=== PATIENT | female | born 1985 | race Caucasian/White ===

== ENCOUNTER 2023-04-17 11:01 | Emergency (ER) | payer OTHER, SELFPAY ==
[2023-04-17 11:10] VITALS: BP 135/84; PULSE 84; RESP 16; TEMP 36.6; O2SAT 98; BMI 19.3
[2023-04-17 11:43] LABS: Add Urine Microscopic? NO; Charge for UA Resulting for Rev
[2023-04-17 11:44] LABS: Bilirubin Urine Neg (Negative); Blood Urine Neg (Negative); Glucose Urine UA Norm (Normal); Ketones Urine 3+ (Negative); Leukocyte Esterase Urine Negative (Negative); Nitrate Urine Negative (Negative); Protein Urine Neg (Negative); Specific Gravity, Urine 1.015 (1.005-1.030); Urine Appearance Clear (CLEAR); Urine Color Yellow (Yellow); Urobilinogen Urine Norm (Negative); pH Urine 5 (5-7)
--- NOTE | 2023-04-17 11:45 | W.ED.ABDPA2 ---
HPI - Abdominal Pain General: Chief Complaint: Abdominal Pain Stated Complaint: LRQ pain Time Seen by Provider: 04/17/23 11:24 History of Present Illness: Patient presents to the ER with complaints of right lower quadrant pain. Patient started having this pain last night. Patient says it is worse when she walks or sits up straight. Patient did have some vomiting last night. Patient is currently 16 weeks . Patient still has her appendix. MD elicited complaint: abdominal pain Onset (ago): day(s) (Started last night) Pain Consistency: constant Location: RLQ Severity: moderate Quality: aching Radiation: suprapubic Migration to: no migration Exacerbating factors: movement Relieving factors: nothing Associated Symptoms: Reports nausea and vomiting; Denies chills and fever(s) Review of Systems General: Reports: 10 or more systems reviewed and unremarkable except in HPI and below Const: Denies: fever(s) or chills Eyes: Denies: change in vision or photophobia ENMT: Denies: throat pain or odynophagia Card: Denies: chest pain, palpitations or irregular heart rhythm Resp: Denies: dyspnea, productive cough or non-productive cough GI: Reports: abdominal pain, nausea and vomiting : Denies: flank pain or difficulty voiding Musc: Denies: neck pain or back pain Skin/Breast: Denies: rash or pruritus Physical Exam Const: COMMON NORMALS: no acute distress, average body habitus, patient oriented x3, no limitations, healthy appearing, alert and well nourished HENMT: COMMON NORMALS: normocephalic, atraumatic, hearing grossly normal bilaterally, external ears normal, Normal external nose present and moist oral mucous membranes HEAD & SCALP: normocephalic and atraumatic NOSE: Normal external nose present EXTERNAL EAR: Yes external ears normal Eye: COMMON NORMALS: Equal, round and reactive pupils present, EOMs intact bilaterally, conjunctivae normal and no scleral icterus CONJUNCTIVA: Yes conjunctivae normal PUPIL: Yes Equal, round and reactive pupils present Neck/C-Spine: COMMON NORMALS: full ROM, no lymphadenopathy, supple, no meningeal signs, no JVD and Thyroid normal THYROID: Thyroid normal Lymph: LYMPHATIC: no lymphadenopathy noted Chest: COMMONS NORMALS: normal inspection of the chest and normal palpation of entire chest wall Resp: COMMON NORMALS: normal respiratory effort, No retractions, No use of accessory muscles and clear to auscultation bilaterally AUSCULTATION: clear to auscultation bilaterally Cardio: COMMON NORMALS: no JVD, regular rate, regular rhythm, S1 normal heart sound present, S2 normal heart sound present, No gallops present (Cardio), No clicks present (Cardio), No murmurs present (Cardio) and No rub (Cardio) RATE: regular rate RHYTHM: regular rhythm HEART SOUNDS: S1 normal heart sound present and S2 normal heart sound present GI: COMMON NORMALS: Soft to palpation and No hepatosplenomegaly present INSPECTION: Yes normal to inspection (Gravid) AUSCULTATION: Yes normoactive bowel sounds PALPATION: Yes Soft to palpation, Yes Tenderness to palpation present (GI) Details: RLQ, Yes No hepatosplenomegaly present, No Pulsatile mass present and No Rebound tenderness present : COMMON NORMALS: Yes no CVA tenderness BLADDER/KIDNEY EXAM: Yes no CVA tenderness Back/Pelvis: COMMON NORMALS: no CVA tenderness Neuro: COMMON NORMALS: patient oriented x3 SENSORIUM/ORIENTATION: Yes alert MENINGEAL SIGNS: Yes no meningeal signs Course Vital Signs: Vital signs: Vital Signs Temperature 97.9 F 04/17/23 11:10 Pulse Rate 97 04/17/23 12:44 Respiratory Rate 16 04/17/23 12:44 Blood Pressure 123/85 04/17/23 12:44 Pulse Oximetry 100 04/17/23 12:44 Oxygen Delivery Me thod Room Air 04/17/23 12:44 MDM - Abdominal Pain Medical Decision Making Patient presents to the ER with right lower quadrant pain. Patient is 16 weeks . Lab work was obtained which showed a very mildly elevated white count of 12.7 which could be physiological , urine did show elevated ketones again probably from dehydration in . Otherwise lab work was benign. Ultrasound was obtained which was nondiagnostic for appendicitis as appendix was not clearly visualized. Dr. Saxena was consulted he agrees this is probably not appendicitis at this time or very early stage of appendicitis. He would not take the patient to the operating room based upon these alone. This may be round ligament pain due to also. Patient be discharged home with follow-up instructions to carefully watch for pain, fever, nausea vomiting, worsening of her symptoms over the next 24 hours and if she has these she should return to the ER immediately. Family was comfortable with this decision. Differential Diagnosis Likely abdominal pain and acute appendicitis; Unlikely calculus of kidney, constipation, diverticulitis, endometriosis, gastroenteritis, pancreatitis or small bowel obstruction Medical Records I reviewed the patient's medical records. Lab Data I reviewed the patient's lab results. 04/17/23 11:55 04/17/23 11:55 Labs/Radiology: Radiology Impressions Abdomen Ultrasound 04/17/23 12:11 IMPRESSION: 1. The appendix is not clearly visible. Appendicitis is not excluded. 2. Small volume free fluid in the right lower quadrant. Nonspecific finding of uncertain significance. This could represent an intra-abdominal inflammatory process, or may be physiologic. 3. 6 mm echogenic focus with posterior acoustic shadowing in the right lower quadrant. Nonspecific finding of uncertain significance. This could be a phlebolith, vascular calcification, shadowing bowel contents, or appendicolith. Laboratory Results WBC 12.7 10^3/uL (4.0-10.0) H 04/17/23 11:55 RBC 4.18 10^6/uL (4.1-5.3) 04/17/23 11:55 Hgb 11.8 g/dL (11.5-15.3) 04/17/23 11:55 Hct 36.5 % (37.0-47.0) L 04/17/23 11:55 MCV 87.3 fl (81-99) 04/17/23 11:55 MCH 28.2 pg (28.0-34.0) 04/17/23 11:55 MCHC 32.3 g/dL (30.0-36.0) 04/17/23 11:55 RDW 13.2 % (12.1-15.1) 04/17/23 11:55 Plt Count 158 10^3/cmm (130-400) 04/17/23 11:55 MPV 9.6 fL (7.4-10.4) 04/17/23 11:55 Neut % (Auto) 85.3 % 04/17/23 11:55 Lymph % (Auto) 9.3 % 04/17/23 11:55 [place] % (Auto) 4.7 % 04/17/23 11:55 Eos % (Auto) 0.1 % 04/17/23 11:55 Baso % (Auto) 0.2 % 04/17/23 11:55 Neut # (Auto) 10.87 10^3/uL (1.8-7.7) H 04/17/23 11:55 Lymph # (Auto) 1.2 10^3/uL (0.8-4.8) 04/17/23 11:55 [place] # (Auto) 0.6 10^3/uL (0.2-0.9) 04/17/23 11:55 Eos # (Auto) 0.0 10^3/uL (0.0-0.8) 04/17/23 11:55 Baso # (Auto) 0.0 10^3/uL (0.0-0.1) 04/17/23 11:55 Nucleated RBC % (auto) 0 % 04/17/23 11:55 Nucleated RBCs # 0.0 /100WBC 04/17/23 11:55 Sodium 134 mmol/L (136-145) L 04/17/23 11:55 Potassium 3.6 mmol/L (3.5-5.1) 04/17/23 11:55 Chloride 101 mmol/L (98-107) 04/17/23 11:55 Carbon Dioxide 20 mmol/L (22-29) L 04/17/23 11:55 Anion Gap 16.6 (5-19) 04/17/23 11:55 BUN 6 mg/dL (6-20) 04/17/23 11:55 Creatinine 0.4 mg/dL (0.5-0.9) L 04/17/23 11:55 GFR Calculation 178.6 mL/min (90-130) H 04/17/23 11:55 Glucose 84 mg/dL (65-115) 04/17/23 11:55 Calculated Osmolality 275 mOsm/kg (285-295) L 04/17/23 11:55 Calcium 8.9 mg/dL (8.5-10.5) 04/17/23 11:55 Total Bilirubin 0.5 mg/dL (0.15-1.2) 04/17/23 11:55 AST 17 U/L (0-32) 04/17/23 11:55 ALT 19 U/L (0-33) 04/17/23 11:55 Alkaline Phosphatase 42 U/L (35-105) 04/17/23 11:55 Total Protein 7.1 g/dL (6.6-8.7) 04/17/23 11:55 Albumin 3.8 g/dL (3.5-5.2) 04/17/23 11:55 Globulin 3.3 g/dL (1.3-4.6) 04/17/23 11:55 Urine Color Yellow (Yellow) 04/17/23 11:34 Urine Appearance Clear (CLEAR) 04/17/23 11:34 Urine pH 5 (5-7) 04/17/23 11:34 Ur Specific [place] 1.015 (1.005-1.030) 04/17/23 11:34 Urine Protein Neg (Negative) 04/17/23 11:34 Urine Glucose (UA) Norm (Normal) 04/17/23 11:34 Urine Ketones 3+ (Negative) H 04/17/23 11:34 Urine Blood Neg (Negative) 04/17/23 11:34 Urine Nitrate Negative (Negative) 04/17/23 11:34 Urine Bilirubin Neg (Negative) 04/17/23 11:34 Urine Urobilinogen Norm mg/dL (Negative) 04/17/23 11:34 Ur Leukocyte Esterase Negative (Negative) 04/17/23 11:34 Discharge Plan Discharge Patient Disposition: Home Clinical Impression: Right lower quadrant pain Qualifiers: Weeks of gestation: 16 weeks Qualified Code(s): Z3A.16 - 16 weeks gestation of Condition: Stable Prescriptions: No Action No Known Home Medications Discharge Orders: Discharge ED (Routine); Ordered 04/17/23 Ordered By: Jeancarlos Moody Referrals: Tejal Mcelroy MD [Primary Care Provider] - 1 week Patient Instructions: Abdominal Pain (ED) Activity Restrictions/Additional Instructions: Please watch for increased pain in your right lower quadrant, fever, worsening nausea vomiting, as these may be signs of worsening symptomatology. If any of these happen please come back to the ER immediately as your condition may have changed. Please push plenty of fluids Coding Level of Care Code ED [employer] for Juani Daugherty
[2023-04-17 12:06] LABS: Basophils % 0.2 %; Eosinophils % 0.1 %; Hematocrit 36.5 % (37.0-47.0); Hemoglobin 11.8 g/dL (11.5-15.3); Lymphocytes # 1.2 10^3/uL (0.8-4.8); Lymphocytes % 9.3 %; Mean Corpuscular HGB Conc 32.3 g/dL (30.0-36.0); Mean Corpuscular Hemoglobin 28.2 pg (28.0-34.0); Mean Corpuscular Volume 87.3 fl (81-99); Mean Platelet Volume 9.6 fL (7.4-10.4); Monocytes # 0.6 10^3/uL (0.2-0.9); Monocytes % 4.7 %; Neutrophils # 10.87 10^3/uL (1.8-7.7); Neutrophils % 85.3 %; Nucleated Red Blood Cells % 0 %; Platelet Count 158 10^3/cmm (130-400); Red Blood Count 4.18 10^6/uL (4.1-5.3); Red Cell Distribution Width 13.2 % (12.1-15.1); White Blood Count 12.7 10^3/uL (4.0-10.0)
--- NOTE | 2023-04-17 12:11 | USR_ITS ---
PROCEDURE INFORMATION: Exam: US Abdomen, Limited; Appendix Exam date and time: 04/17/2023 12:25 PM Age: 38 years old Clinical indication: Abdominal pain; Acute; ; Additional info: Rlq pain, 16 weeks , focus on rlq, appendix, ovary TECHNIQUE: Imaging protocol: Real time ultrasound of the abdomen with image documentation. Limited exam focused on the appendix. COMPARISON: US OB >= 14 weeks fetus [id number] 04/18/2018 3:00 PM FINDINGS: Appendix: The appendix is not clearly visible. Intraperitoneal space: There is a small volume of free fluid in the right lower quadrant. There is a 6 mm echogenic focus with posterior acoustic shadowing adjacent to the free fluid. US/US abdomen limited [id number] IMPRESSION: 1. The appendix is not clearly visible. Appendicitis is not excluded. 2. Small volume free fluid in the right lower quadrant. Nonspecific finding of uncertain significance. This could represent an intra-abdominal inflammatory process, or may be physiologic. 3. 6 mm echogenic focus with posterior acoustic shadowing in the right lower quadrant. Nonspecific finding of uncertain significance. This could be a phlebolith, vascular calcification, shadowing bowel contents, or appendicolith.
[2023-04-17 12:28] LABS: Alanine Aminotransferase 19 U/L (0-33); Albumin Level 3.8 g/dL (3.5-5.2); Alkaline Phosphatase 42 U/L (35-105); Anion Gap 16.6 (5-19); Aspartate Amino Transferase 17 U/L (0-32); Blood Urea Nitrogen 6 mg/dL (6-20); Calcium 8.9 mg/dL (8.5-10.5); Carbon Dioxide 20 mmol/L (22-29); Chloride 101 mmol/L (98-107); Globulin 3.3 g/dL (1.3-4.6); Glomerular Filtration Rate 178.6 mL/min (90-130); Glucose 84 mg/dL (65-115); Osmolality Calculated 275 mOsm/kg (285-295); Potassium 3.6 mmol/L (3.5-5.1); Sodium 134 mmol/L (136-145); Total Bilirubin 0.5 mg/dL (0.15-1.2); Total Protein 7.1 g/dL (6.6-8.7)
[2023-04-17 12:44] VITALS: BP 123/85; PULSE 97; RESP 16; O2SAT 100
== END 2023-04-17 13:29 | disposition home or self-care (01) ==
PROVIDERS: Emergency Provider Emergency Medicine; PCP Family Medicine
DX: O26.892 Other specified pregnancy related conditions, second trimester (principal); R10.31 Right lower quadrant pain; Z3A.16 16 weeks gestation of pregnancy
CPT/HCPCS: 76705; 80053; 81000; 81003; 85025; 99283

== ENCOUNTER 2023-09-13 17:01 | Outpatient (CLI) | payer OTHER, MEDICAID, SELFPAY ==
[2023-09-13 17:25] VITALS: BMI 20.9
[2023-09-13 17:27] VITALS: BP 153/87; PULSE 90
[2023-09-13 17:47] VITALS: BP 134/91; PULSE 109
[2023-09-13 17:52] LABS: Basophils % 0.2 %; Eosinophils % 0.3 %; Hematocrit 37.6 % (36-47); Lymphocytes # 1.9 10^3/uL (0.8-4.8); Lymphocytes % 19.4 %; Mean Corpuscular HGB Conc 32.7 g/dL (30-55); Mean Corpuscular Hemoglobin 29.5 pg (27-33); Mean Corpuscular Volume 90.2 fl (85-98); Mean Platelet Volume 9.8 fL (7.4-10.4); Monocytes # 0.6 10^3/uL (0.2-0.9); Monocytes % 6.3 %; Neutrophils # 7.03 10^3/uL (1.8-7.7); Neutrophils % 73.2 %; Nucleated Red Blood Cells % 0 %; Platelet Count 174 10^3/cmm (157-399); Red Blood Count 4.17 10^6/uL (3.85-5.65)
[2023-09-13 18:07] VITALS: BP 133/90; PULSE 88
[2023-09-13 18:19] LABS: Alanine Aminotransferase 72 U/L (0-33); Albumin Level 3.7 g/dL (3.5-5.2); Alkaline Phosphatase 98 U/L (35-105); Anion Gap 16.9 (5-19); Aspartate Amino Transferase 46 U/L (0-32); Blood Urea Nitrogen 21 mg/dL (6-20); Carbon Dioxide 22 mmol/L (22-29); Chloride 101 mmol/L (98-107); Creatinine Clr Calc Pharmacy 152.6363; Globulin 3.5 g/dL (1.3-4.6); Glomerular Filtration Rate 138.1 mL/min (90-130); Glucose 74 mg/dL (65-115); Osmolality Calculated 284 mOsm/kg (285-295); Potassium 3.9 mmol/L (3.5-5.1); Sodium 136 mmol/L (136-145); Total Bilirubin 0.3 mg/dL (0.15-1.2); Total Protein 7.2 g/dL (6.6-8.7); Uric Acid 5.8 mg/dL (2.4-5.7)
[2023-09-13 18:21] LABS: Urine Creatinine 49 mg/dL (28-217); Urine Protein Random 5 mg/dL
[2023-09-13 18:27] VITALS: BP 134/89; PULSE 95
[2023-09-13 18:47] VITALS: BP 136/81; PULSE 87
[2023-09-13 19:19] VITALS: BP 136/81; PULSE 87; RESP 18
== END 2023-09-13 19:00 | disposition home or self-care (01) ==
LOC: OPOB 17:06 → OBGYN 17:06
PROVIDERS: PCP Family Medicine; Visit Provider Family Medicine
DX: O16.9 Unspecified maternal hypertension, unspecified trimester (principal); Z3A.00 Weeks of gestation of pregnancy not specified
CPT/HCPCS: 36415; 59025; 80053; 82570; 84156; 84550; 85025; 99211

== ENCOUNTER 2023-09-16 16:45 | Outpatient (CLI) | payer OTHER, MEDICAID, SELFPAY ==
[2023-09-16 16:50] VITALS: BMI 20.3
[2023-09-16 17:00] VITALS: BP 143/89; PULSE 95
[2023-09-16 17:20] VITALS: BP 142/89; PULSE 88
[2023-09-16 17:41] VITALS: BP 142/89; PULSE 88
== END 2023-09-16 17:35 | disposition home or self-care (01) ==
LOC: OPOB 16:47 → OBGYN 16:48
PROVIDERS: PCP Family Medicine; Visit Provider Family Medicine
DX: O24.419 Gestational diabetes mellitus in pregnancy, unspecified control (principal); Z3A.00 Weeks of gestation of pregnancy not specified
CPT/HCPCS: 59025; 99211

== ENCOUNTER 2023-09-19 10:33 | Outpatient (CLI) | payer OTHER, MEDICAID, SELFPAY ==
[2023-09-19 10:42] VITALS: BMI 20.7
[2023-09-19 10:55] VITALS: BP 129/86; PULSE 88
[2023-09-19 11:09] VITALS: BP 133/85; PULSE 93
[2023-09-19 11:24] VITALS: BP 136/84; PULSE 94
[2023-09-19 11:32] VITALS: BP 136/84
== END 2023-09-19 11:35 | disposition home or self-care (01) ==
LOC: OPOB 10:35 → OBGYN 10:36
PROVIDERS: PCP Family Medicine; Visit Provider Family Medicine
DX: O26.899 Other specified pregnancy related conditions, unspecified trimester (principal); Z3A.00 Weeks of gestation of pregnancy not specified
CPT/HCPCS: 59025

== ENCOUNTER 2023-09-22 00:45 | Outpatient (CLI) | payer OTHER, MEDICAID, SELFPAY ==
[2023-09-22] VITALS (9 sets, daily range): BP systolic 119–148; BP diastolic 73–96; PULSE 78–111; RESP 17; TEMP 35.9; BMI 20.8
== END 2023-09-22 03:16 | disposition home or self-care (01) ==
LOC: OPOB 00:46 → OBGYN 00:47
PROVIDERS: PCP Family Medicine; Visit Provider Family Medicine
DX: O26.899 Other specified pregnancy related conditions, unspecified trimester (principal); Z3A.00 Weeks of gestation of pregnancy not specified; R10.9 Unspecified abdominal pain
CPT/HCPCS: 59025; 99211

== ENCOUNTER 2023-09-23 02:44 | Inpatient (IN) | payer OTHER, MEDICAID, SELFPAY ==
[2023-09-23] VITALS (62 sets, daily range): BP systolic 126–185; BP diastolic 70–102; PULSE 76–120; RESP 18; TEMP 36.3–37.2; O2SAT 94–100; BMI 20.7
[2023-09-23] MEDS: lactated ringers 1,000 ML 999 ML IV (02:41)
[2023-09-23 02:47] LABS: Basophils % 0.2 %; Eosinophils % 0.1 %; Lymphocytes % 10.5 %; Mean Corpuscular HGB Conc 33.5 g/dL (30-55); Mean Corpuscular Hemoglobin 29.5 pg (27-33); Mean Corpuscular Volume 87.9 fl (85-98); Mean Platelet Volume 10.2 fL (7.4-10.4); Monocytes # 0.9 10^3/uL (0.2-0.9); Monocytes % 4.8 %; Neutrophils # 15.94 10^3/uL (1.8-7.7); Neutrophils % 83.7 %; Nucleated Red Blood Cells % 0 %; Platelet Count 199 10^3/cmm (157-399); Red Blood Count 4.55 10^6/uL (3.85-5.65); Red Cell Distribution Width 13.2 % (12.1-15.1); White Blood Count 19.03 10^3/uL (3.29-11.43)
--- NOTE | 2023-09-23 03:41 | ANES.PREANE2 ---
Pre-Anesthetic Assessment Height/Weight: Height 1.73 m Weight 61.689 kg Temp Pulse BP O2 Del Method 97.3 F L 86 154/91 Room Air 09/23/23 02:24 09/23/23 03:35 09/23/23 03:35 09/23/23 02:34 Preop Diagnosis: labor epidural Familial anesthetic complications: none Was Beta Rosalia taken within 24 hours: N/A Was Clonidine taken within 24 hours: N/A Social No alcohol and No tobacco Exam alert, oriented x 3, clear to auscultation bilaterally and regular rate & rhythm Airway Submandibular: within normal limits Cervical ROM: within normal limits Mallampati: Class I Dentition: full Pulmonary None reported CV/HEM Hypertension (with ) None reported Hepatic None reported GI Gastroesophageal Reflux Disease (food related) Metabolic None reported Musc/skel None reported Neuropsych None reported Anesthetic Plan ASA status: 2 Anesthesia: Regional (specify below) (Epidural) Risk of > 500 ml blood loss (7ml/kg in children): No Medications/Allergies Home Medications Medication Instructions Recorded Confirmed Last Taken Type 1 tab PO DAILY 09/23/23 09/23/23 09/22/23 18:00 History aspirin 81 mg capsule 1 mg PO DAILY 09/23/23 09/23/23 09/22/23 18:00 History magnesium 1 tab PO DAILY 09/23/23 09/23/23 09/22/23 18:00 History Allergies Allergy/AdvReac Type Severity Reaction Status Date / Time codeine Allergy Mild rash Verified 09/23/23 02:51 Current Medications Generic Name Dose Route Start Last Admin Trade Name Freq PRN Reason Stop Dose Admin Lactated Ringer's 1,000 mls @ 999 mls/hr 09/23/23 02:36 09/23/23 02:41 Lactated Ringers IV 999 mls/hr .Q1H1M PRN Administration epidural PFSH Anesthesia Female Reproductive History : 3 Data Anesthesia 09/23/23 02:40 Short CBC 09/23/23 Range/Units 02:40 WBC 19.03 H (3.29-11.43) 10^3/uL Hgb 13.40 (11.27-16.99) g/dL Hct 40.0 (36-47) % MCV 87.9 (85-98) fl Plt Count 199 (157-399) 10^3/cmm Neut % (Auto) 83.7 % Neut # (Auto) 15.94 H (1.8-7.7) 10^3/uL Cardiac Studies: No Data to Display
[2023-09-23] MEDS: ROPivacaine syringe 100 MG/50 ML SYRINGE 10 MG EPIDURAL (04:10)
--- NOTE | 2023-09-23 04:28 | ANES.PROC ---
Anesthesia Procedures Procedure/Date: 09/23/23 Epidural: Time Out Performed: Yes Consents Signed: Procedure Consent and NPO Consent Consent: requested by attending/covering physician, from patient, risks and benefits reviewed, patient agrees to proceed and emergency procedure Lumbar Level: L3-L4 Epidural position: sitting Epidural procedure: sterile prep of area (betadine), 1% lidocaine to numb the area (3ml), 18 g needle, neg for paresthesia, test dose given, 1.5% xylocaine 1:200k epi (3ml/2ml), 0.2% Ropivacaine bolus ml (5ml), placed PCEA, no systemic response, sterile dressing applied, L.U.D. no apparent complications and 0.2% Ropiavacaine @ mls/hr (10ml/hr)
--- NOTE | 2023-09-23 06:26 | PM.OPHPUD ---
Labor & Delivery H&P Update Date of Procedure: September 23, 2023 Date H&P Performed: 09/20/23 Admission Diagnosis: Active labor IUP at 38 weeks 4 days gestation Diet-controlled gestational diabetes mellitus Gestational hypertension Polyhydramnios Desired permanent surgical sterilization Preop diagnosis: labor Planned procedure: Operation Date: 09/24/23 08:10 Proposed Procedures p Post Bilateral Tubal Ligation(Bilateral) - Tejal Mcelroy MD
[2023-09-23] MEDS: oxytocin 30 UNIT/500 ML BAG 600 UNIT IV (06:32)
--- NOTE | 2023-09-23 06:33 | PM.DELIVERY ---
Delivery Note: Date of delivery: September 23, 2023 Procedure: Normal spontaneous vaginal delivery Estimated blood loss (mL): 300 Pre-Delivery Course: The patient had routine care at [facility]. The patient failed her 1 hour glucose tolerance test and refused to take the 3-hour glucose tolerance test so instead she checked her blood sugars 4 times daily. For this reason she was considered gestational diabetes mellitus diet-controlled. In the beginning of the third trimester her fundal height was increased and she was diagnosed with polyhydramnios via ultrasound. In the late third trimester she had some mildly elevated blood pressures and was diagnosed with gestational hypertension. She did not require antihypertensives. She was receiving twice weekly NSTs and was scheduled for induction later today. labs: Blood type A+, antibody negative, HIV nonreactive, hepatitis B nonreactive, hepatitis C nonreactive, GC chlamydia negative, UDS negative, RPR nonreactive, rubella immune, the patient failed her 1 hour glucose tolerance test and refused to take the 3-hour glucose tolerance test so instead she checked her blood sugars 4 times daily. GBS negative. Delivery: This is a 38-year-old G4, P0121 at 38 weeks 4 days gestation who presented to labor and delivery in active labor. She was admitted for expectant management and received an epidural for pain management. When she was complete and +2 artificial rupture membranes was performed with clear fluid. She had a normal spontaneous vaginal delivery of a viable male infant weight 7 pounds 15 ounces, 3595 g Apgars 8 and 9 over an intact perineum. The infant had a body cord that was reduced upon delivery. The infant was suctioned at delivery and placed on the mother's chest. The cord was clamped and cut. The placenta was delivered grossly intact and normal to inspection. There was a third degree vaginal laceration that was sutured using 3-0 vicryl. Second-degree vaginal laceration was sutured using 3-0 chromic. Mother and infant were doing well after delivery. Coding Level of Care Code Acute Code for Chg Fwd Diagnoses
[2023-09-23] MEDS: benzocaine-menthol 78 gm Canister 1 SPRAY TOPICAL (10:24)
[2023-09-23] MEDS: ibuprofen 800 mg tablet PO ×3 (10:25→21:39)
[2023-09-23] MEDS: docusate sodium 100 mg Capsule PO (10:25)
[2023-09-23] MEDS: prenatal vitamin Capsule 1 CAP PO (10:25)
[2023-09-23 18:27] LABS: Hematocrit 30.6 % (36-47); Mean Corpuscular HGB Conc 32.7 g/dL (30-55); Mean Corpuscular Volume 88.7 fl (85-98); Mean Platelet Volume 10.2 fL (7.4-10.4); Platelet Count 156 10^3/cmm (157-399); Red Blood Count 3.45 10^6/uL (3.85-5.65); Red Cell Distribution Width 13.4 % (12.1-15.1); White Blood Count 18.29 10^3/uL (3.29-11.43)
[2023-09-24] VITALS (11 sets, daily range): BP systolic 111–142; BP diastolic 70–83; PULSE 85–110; RESP 16–18; TEMP 36.6–37.2; O2SAT 96–100
--- NOTE | 2023-09-24 07:30 | P.ANESUD_ITS ---
Pre-Anesthetic Update Pre-Anesthetic Assessment: Date of Surgery/Procedure: 09/24/23 Preop Maryana gnosis: desires sterilization Proposed Procedure: Operation Date: 09/24/23 08:10 Proposed Procedures p Post Bilateral Tubal Ligation(Bilateral) - Tejal Mcelroy MD Any changes to Pre-Anesthetic Assessment?: No Changes from Pre-Anesthetic Assessment: none Last Intake: Intake Last Liquid Date 09/23/23 Last Liquid Time 23:30 Last Solid Date 09/23/23 Last Solid Time 20:00 Labs Last 48hrs: Short CBC 09/23/23 09/23/23 Range/Units 02:40 18:10 WBC 19.03 H 18.29 H (3.29-11.43) 10^ 3/uL Hgb 13.40 10.00 L (11.27-16.99) g/ dL Hct 40.0 30.6 L (36-47) % MCV 87.9 88.7 (85-98) fl Plt Count 199 156 L (157-399) 10^3/c mm Neut % (Auto) 83.7 % Neut # (Auto) 15.94 H (1.8-7.7) 10^3/u L Blood Bank 09/23/23 02:40 Blood Type A Positive Rho(D) Type Positive Antibody Screen Negative Vitals: Temperature 98.3 F 09/24/23 04:00 Temperature Source Oral 09/24/23 04:00 Pulse Rate 93 09/24/23 04:00 Pulse Rhythm Regular 09/23/23 01:55 Pulse Strength 3+ Normal 09/23/23 01:55 Respiratory Rate 18 09/24/23 04:00 Respiratory Effort Spontaneous, Non- Labored 09/23/23 01:55 Respiratory Depth Normal 09/23/23 01:55 Respiratory Patter n Normal 09/23/23 01:55 Blood Pressure 126/82 09/24/23 04:00 Blood Pressure Kristen n 96 09/24/23 04:00 Blood Pressure Pos ition Semi Fowlers 09/24/23 04:00 Pulse Oximetry 96 09/23/23 15:50 Oxygen Delivery Me thod Room Air 09/23/23 15:50 Exam: Pre-Anes Outpt Exam: alert and oriented x 3 Cardiac Studies: No Data to Display
[2023-09-24] MEDS: famotidine 20 mg/2 mL INJ IVP (07:53)
[2023-09-24] MEDS: metoclopramide 5 mg/mL SDV 2 mL 10 MG IVP (07:53)
[2023-09-24] MEDS: citric acid-sodium citrate 30 mL UDC PO (07:53)
[2023-09-24] MEDS: ceFAZolin 2,000 MG in sodium chloride 0.9% (plus) 50 ML 100 MG IV (07:54)
--- NOTE | 2023-09-24 09:05 | PM.OP ---
Operative Report Date of procedure: September 24, 2023 Pre-op diagnosis: Desired permanent surgical sterilization Procedure done: bilateral tubal ligation Pathology: Segments of right and left fallopian tubes Surgeon: Tejal Mcelroy MD Estimated blood loss (mL): 2 IV fluids (mL): 200 Complications: None Procedure: After informed consent the patient was taken to the OR where spinal anesthesia was administered. She was prepped and draped in normal sterile fashion in dorsal supine position. After adequate spinal anesthesia was verified, and infraumbilical skin incision was made using a 15 blade. The incision was then carried through to the underlying layer of fascia bluntly using a hemostat. The fascia was grasped with Allis clamps and entered sharply using the [place]. The peritoneum was entered bluntly and the incision site was manually stretched using [place] retractors. The left fallopian tube was grasped with a Samantha and brought into the operative field. Fimbria were visualized but adherent to the underlying layer of tissue. A proximal portion of the tube was ligated and excised. Segment was sent to pathology. Tubal ostia were identified. Cut portions of the tube were coagulated using the Bovie and then returned to the abdomen. The right fallopian tube was then grasped with a [place] and brought into the operative field. Again the area where adherent to underlying tissue but were visualized. A proximal portion of the tube was ligated and excised. Segment was sent to pathology. Tubal ostia were visualized. Cut segments of the tube were coagulated using the Bovie and then returned to the abdomen. The peritoneum and fascia was then reapproximated using 0 Vicryl in a running fashion. Irrigation was used in the subcutaneous tissue. The skin was then reapproximated using 4-0 Vicryl in a running fashion. Steri-Strips and a pressure bandage were applied and patient went to recovery in good condition. Sponge instrument and needle counts were correct
--- NOTE | 2023-09-24 09:10 | ANE.PACU2 ---
Inpatient post-anesthesia follow up: Airway intact: Yes Vital signs: Temperature 98.0 F Pulse Rate 92 Respiratory Rate 16 Blood Pressure 121/80 Pulse Oximetry 97 Oxygen Delivery Me thod Room Air Oxygen Flow Rate Fraction of Inspir ed Oxygen Hydration adequate: Yes Nausea and vomiting: No Pain level: 1 Mental status: Baseline
--- NOTE | 2023-09-24 09:21 | P.DS_ITS ---
Discharge Providers Date of Admission: 09/23/23 02:44 Date of Discharge: September 24, 2023 Attending Provider at Admission: Tejal Mcelroy MD Attending Provider at Discharge: Tejal Mcelroy MD Primary Care Provider: Tejal Mcelroy MD Reason for Visit Reason for Visit: possible contractions Hospital Course Hospital Course This is a 38-year-old G4 now P2 who was admitted in active labor and had a normal spontaneous vaginal delivery of a viable male infant. On day #1 she underwent a bilateral tubal ligation. She was ambulating, tolerating a regular diet, had good pain control and was comfortable with discharge home. Physical Exam Narrative: Alert and oriented, sitting up in bed, heart regular rate and rhythm, lungs clear to auscultation bilaterally, abdomen is soft and nontender, fundus is firm and at the umbilicus, extremities have no calf tenderness and no edema Urinary Catheter Management: Mulligan: Cath Placed During This Visit: yes, but has since been removed by the nurse Reason for Continuing Indwelling Catheter: Decision to DC Catheter Urinary Catheter Date of Insertion: 09/23/23 Urinary Catheter Time of Insertion: 04:44 Date Urinary Catheter Removed: 09/23/23 Time Urinary Catheter Discontinued: 05:15 Discharge Data Studies Completed and Pending Laboratory Results WBC 18.29 10^3/uL (3.29-11.43) H 09/23/23 18:10 RBC 3.45 10^6/uL (3.85-5.65) L 09/23/23 18:10 Hgb 10.00 g/dL (11.27-16.99) L 09/23/23 18:10 Hct 30.6 % (36-47) L 09/23/23 18:10 MCV 88.7 fl (85-98) 09/23/23 18:10 MCH 29.0 pg (27-33) 09/23/23 18:10 MCHC 32.7 g/dL (30-55) 09/23/23 18:10 RDW 13.4 % (12.1-15.1) 09/23/23 18:10 Plt Count 156 10^3/cmm (157-399) L 09/23/23 18:10 MPV 10.2 fL (7.4-10.4) 09/23/23 18:10 Neut % (Auto) 83.7 % 09/23/23 02:40 Lymph % (Auto) 10.5 % 09/23/23 02:40 [place] % (Auto) 4.8 % 09/23/23 02:40 Eos % (Auto) 0.1 % 09/23/23 02:40 Baso % (Auto) 0.2 % 09/23/23 02:40 Neut # (Auto) 15.94 10^3/uL (1.8-7.7) H 09/23/23 02:40 Lymph # (Auto) 2.0 10^3/uL (0.8-4.8) 09/23/23 02:40 [place] # (Auto) 0.9 10^3/uL (0.2-0.9) 09/23/23 02:40 Eos # (Auto) 0.0 10^3/uL (0.0-0.8) 09/23/23 02:40 Baso # (Auto) 0.0 10^3/uL (0.0-0.1) 09/23/23 02:40 Nucleated RBC % (auto) 0 % 09/23/23 02:40 Nucleated RBCs # 0.0 /100WBC 09/23/23 02:40 Blood Type A Positive 09/23/23 02:40 Rho(D) Type Positive 09/23/23 02:40 Antibody Screen Negative 09/23/23 02:40 Vitals Last Vital Signs Temp 98.3 F 09/24/23 04:00 Pulse 93 09/24/23 04:00 Resp 18 09/24/23 04:00 BP 126/82 09/24/23 04:00 Pulse Ox 96 09/23/23 15:50 O2 Del Method Room Air 09/23/23 15:50 Discharge Plan Discharge Patient Disposition: Home Condition: Stable Prescriptions: New hydrocodone-acetaminophen 5-325 mg Tablet 1 - 2 tab PO Q6H PRN (Reason: Abdominal Pain) Qty: 10 0RF ibuprofen 800 mg Tablet 800 mg PO TID PRN (Reason: Abdominal Discomfort) Qty: 40 0RF Continued tablet 1 tab PO DAILY Discontinued magnesium Tablet 1 tab PO DAILY aspirin 81 mg Capsule 1 mg PO DAILY Discharge Orders: Discharge Order (Routine); Ordered 09/24/23 Ordered By: Tejal Mcelroy Referrals: Tejal Mcelroy MD [Primary Care Provider] - 1-3 days (Mon or Tues) Discharge Diet: Usual diet Discharge Activity: Limit activity as instructed Patient Instructions: Depression (DC), Expression, Collection and Storage of Breast Milk (DC), and Nipple Soreness (DC), Bleeding (DC), Preeclampsia and Eclampsia After Delivery (GEN), Hemorrhage (DC), OB Discharge Report, OB Food/Drug Interaction Guide, OB Care at Home, Opioid Safety, OB Vaginal Deliveries Activity Restrictions/Additional Instructions: No lifting > 10 lbs for 2 weeks. Nothing per vagina for 6 weeks. Discharge Attestations Time Spent in Discharge Care*: less than 30 min Quality Metrics Clinical Quality Measures [ No reported AMI, CVA or VTE this stay] Coding Level of Care Code Acute Code for Chg Fwd Diagnoses
[2023-09-24] MEDS: ibuprofen 800 mg tablet PO ×2 (09:45→14:58)
[2023-09-24] MEDS: HYDROcodone-acetaminophen 5-325 mg Tablet PO ×2 (09:45→10:48)
[2023-09-24] MEDS: prenatal vitamin Capsule 1 CAP PO (09:46)
[2023-09-24] MEDS: docusate sodium 100 mg Capsule PO (09:46)
== END 2023-09-24 15:34 | disposition home or self-care (01) | DRG 768 ==
LOC: OPOB 02:44 → OBGYN 02:44
PROVIDERS: Admitting Provider Family Medicine; PCP Family Medicine; Visit Provider Family Medicine
PROC: 0UB70ZZ Excision of Bilateral Fallopian Tubes, Open Approach (ICD-10-PCS; CPT 58605; principal; 2023-09-24 08:00)
DX: O24.420 Gestational diabetes mellitus in childbirth, diet controlled (principal); Z37.0 Single live birth; O70.20 Third degree perineal laceration during delivery, unspecified; Z3A.38 38 weeks gestation of pregnancy; O13.4 Gestational [pregnancy-induced] hypertension without significant proteinuria, complicating childbirth; O40.3XX0 Polyhydramnios, third trimester, not applicable or unspecified; Z30.2 Encounter for sterilization
CPT/HCPCS: 36415; 51702; 58605; 59025; 59409; 85025; 85027; 86850; 86900; 88302; 96374; 98960; 99211; J0690; J2590; J2765; J2795; J3490; J7120